=== PATIENT | female | born 1955 | race Asian ===

== ENCOUNTER 2021-06-17 18:08 | Emergency (ER) | payer OTHER ==
[~2021-06-17] VITALS: Ht 154.9 cm; Wt 59.0 kg
[2021-06-17] MEDS ORDERED: ACETAMINOPHEN 325 MG TABLET PO ONE (18:45)
[2021-06-17] MEDS ORDERED: METF-1211 PO (19:23)
[2021-06-17] MEDS ORDERED: ACAR50TA2 PO (19:23)
[2021-06-17] MEDS ORDERED: HYDR25TA2 PO (19:23)
[2021-06-17] MEDS ORDERED: ATEN100T92 PO (19:23)
[2021-06-17] MEDS ORDERED: LOSA25TA21 PO (19:23)
[2021-06-17] MEDS ORDERED: HYDR10TA31 PO (19:23)
[2021-06-17 20:24] VITALS: BP 134/71
== END 2021-06-17 20:24 | disposition home or self-care (01) ==
LOC: EMS 18:08
DX: S82.001A Unspecified fracture of right patella, initial encounter for closed fracture (principal); I10 Essential (primary) hypertension; E11.9 Type 2 diabetes mellitus without complications; E78.00 Pure hypercholesterolemia, unspecified; Z79.899 Other long term (current) drug therapy; X58.XXXA Exposure to other specified factors, initial encounter; Y93.89 Activity, other specified; Y92.89 Other specified places as the place of occurrence of the external cause; Y99.8 Other external cause status
CPT/HCPCS: 99283

== ENCOUNTER 2021-06-29 21:51 | Emergency (ER) | payer OTHER ==
[~2021-06-29] VITALS: Ht 152.4 cm; Wt 58.1 kg
[~2021-06-29 21:51] MED LIST: ACAR50TA2 PO; ATEN100T92 PO; HYDR10TA31 PO; HYDR25TA2 PO; LOSA25TA21 PO; METF-1211 PO
[2021-06-29 23:41] VITALS: BP 147/88
== END 2021-06-30 03:57 | disposition home or self-care (01) ==
LOC: EMS 21:52
DX: S13.4XXA Sprain of ligaments of cervical spine, initial encounter (principal); S50.02XA Contusion of left elbow, initial encounter; E11.9 Type 2 diabetes mellitus without complications; E78.00 Pure hypercholesterolemia, unspecified; I10 Essential (primary) hypertension; Z79.84 Long term (current) use of oral hypoglycemic drugs; W01.0XXA Fall on same level from slipping, tripping and stumbling without subsequent striking against object, initial encounter; Y93.89 Activity, other specified; Y92.89 Other specified places as the place of occurrence of the external cause; Y99.8 Other external cause status
CPT/HCPCS: 99282; Z7502